=== PATIENT | female | born 1990 | race Caucasian/White ===

== ENCOUNTER 2017-07-07 14:50 | Emergency (ER) | payer MEDICAID, OTHER ==
[2017-07-07 14:56] VITALS: TEMP 98
[2017-07-07] MEDS ORDERED: Fluconazole 150 MG TAB PO ONE (15:35)
--- NOTE | 2017-07-07 15:45 | ED PDOC ---
HPI: Female Pain Time Seen by Provider: 07/07/17 14:59 Chief Complaint (Nursing): Female Genitourinary Chief Complaint (Provider): vaginal d/c History Per: Patient History/Exam Limitations: no limitations Associated Symptoms: denies: Fever, Chills, Nausea, Vomiting, Diarrhea, Back Pain, Chest Pain, Constipation, Urinary Symptoms Additional Complaint(s): 26yo F in Ed for eval of vaginal d/c with lesions to inner labia x 2 weeks. states that she has noted for 2 weeks lesions to inner right labia when urinating and touching are ,however denies pain upon touching area. pt admits to having unprotected sex with partner. pt denies noting fever chills nausea vomiting vaginal bleeding admits to vaginal d/c(white/curd like). Pt states that she has been having yeast infection symptoms x 1 week and often irritates that area. Abnormal Vaginal Bleeding: Yes Past Medical History Reviewed: Historical Data, Nursing Documentation, Vital Signs Vital Signs: Last Vital Signs Temp 98.0 F 07/07/17 14:53 Pulse 81 07/07/17 14:53 Resp 16 07/07/17 14:53 BP 151/103 H 07/07/17 14:53 Pulse Ox 99 07/07/17 14:53 - Medical History PMH: No Chronic Diseases - Family History Family History: States: No Known Family Hx - Allergies Allergies/Adverse Reactions: Allergies Allergy/AdvReac Type Severity Reaction Status Date / Time No Known Allergies Allergy Verified 07/07/17 14:53 Review of Systems ROS Statement: Except As Marked, All Systems Reviewed And Found Negative Genitourinary Female: Positive for: Vaginal Discharge Physical Exam - Reviewed Nursing Documentation Reviewed: Yes Vital Signs Reviewed: Yes - Physical Exam Appears: Positive for: Well, Non-toxic, No Acute Distress Skin: Positive for: Normal Color, Warm, DRY Cardiovascular/Chest: Positive for: Regular Rate, Rhythm Respiratory: Positive for: CNT, Normal Breath Sounds Gastrointestinal/Abdominal: Positive for: Normal Exam, Bowel Sounds, Soft. Negative for: Tenderness Pelvic Exam: Positive for: Bimanual Exam Normal, No Cerv. Motion Tender, No Masses, Discharge (white/curd/ashered to vaginal wall. ), Lesions (noted to inner left labia ulcer however nontender mild reddness noted. no labia swelling. ). Negative for: Active Bleeding, Blood, Cervicitis, Tender W/ Cervical Motion, Tender Adnexa, Tender Uterus, Ulcers Back: Positive for: Normal Inspection Neurologic/Psych: Positive for: Alert, Oriented - ECG O2 Sat by Pulse Oximetry: 99 Medical Decision Making Medical Decision Making: PT will get tested: 1: chlamydia/gonorrhea 2: HSV2 3.: vaginal culture 4. Udip/upreg PT advised to abstain from sexual activity until results. offered to tx for sTI , however declined at this time, Pt with yeast infection will treat with diflucan. Disposition - Clinical Impression Clinical Impression: Yeast infection, Sexually transmitted disease counseling - Patient ED Disposition Is Patient to be Admitted: No Counseled Patient/Family Regarding: Studies Performed, Diagnosis, Need For Followup, Rx Given - Disposition Referrals: [facility] [Outside] Disposition: Routine/Home Disposition Time: 15:57 Condition: STABLE Additional Instructions: please abstain from sexual activity until test results in about 5days. [phone]-[phone] Dept. Instructions: Condom Use (ED), Safe Sex (ED), Female Condom Use (ED) Forms: [employer] (German)
[2017-07-07 16:09] VITALS: BP 132/74; PULSE 89; RESP 18; O2SAT 98
== END 2017-07-07 16:46 | disposition home or self-care (01) ==
LOC: H.ER 14:50
DX: B37.3 Candidiasis of vulva and vagina (principal); Z71.89 Other specified counseling